=== PATIENT | male | born 1990 | race Caucasian/White ===

== ENCOUNTER 2018-02-20 22:55 | Emergency (ER) | payer SELFPAY ==
[2018-02-21] MEDS ORDERED: Tetan/Diph/Pertus SYR(Tdap)* 0.5 ML SYR(BOOSTRIX) use SYR IM ONE (00:16)
[2018-02-21] MEDS ORDERED: Bupivacaine 0.25% W/EPI* 50 ML VIAL INJ ONE (01:50)
[2018-02-21] MEDS ORDERED: Bupivacaine 0.5% W/EPI SDV* 30 ML VIAL ONE (01:53)
[2018-02-21] MEDS ORDERED: Lidocaine 2% EPI 1:200000 MPF*10-20 ML VIAL ONE (01:56)
[2018-02-21] MEDS ORDERED: HYDROcodone/ACETAMIN 5-325 MG* 1 TAB PO ONE (02:33)
[2018-02-21] MEDS ORDERED: Cephalexin CAP* 500 MG PO ONE (02:33)
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
[2018-02-21 02:44] VITALS: BP 129/82
== END 2018-02-21 02:42 | disposition home or self-care (01) ==
LOC: ED 22:55
DX: S51.811A Laceration without foreign body of right forearm, initial encounter (principal); W26.0XXA Contact with knife, initial encounter; Y92.9 Unspecified place or not applicable; Z72.0 Tobacco use
CPT/HCPCS: 12002; 90715; 96372; 96374; 99283; A9270-GY

== ENCOUNTER 2018-02-21 05:08 | Observation (INO) | payer MEDICAID, OTHER ==
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
[2018-02-21] MEDS ORDERED: NS 0.9% 1000 ML* 1,000 ML IV ONE ×2 (05:33→05:56)
[2018-02-21] MEDS ORDERED: Atropine SYRINGE* 0.1 MG/ML 10 ML SYRINGE (1 MG) ONE (05:53)
[2018-02-21 06:09] LABS: ABS Basophils 0.1 10^3/ul (0-0.2); ABS Eosinophils 0.2 10^3/ul (0-0.6); ABS Lymphocytes 2.4 10^3/ul (1.0-4.8); ABS Monocytes 0.8 10^3/ul (0-0.8); ABS Neutrophils 8.2 10^3/ul (1.5-7.7); ABS Nucleated RBC 0 10^3/ul; Hematocrit 41 % (42-52); Hemoglobin 13.7 g/dl (14.0-18.0); Lymphocyte % 20.3 %; Mean Corpuscular HGB Conc 33 g/dl (31-36); Mean Corpuscular Hemoglobin 29 pg (27-31); Mean Corpuscular Volume 88 fL (80-94); Mean Platelet Volume 8.1 fL (7.4-10.4); Nucleated Red Blood Cells % 0.1; Platelet Count 269 10^3/ul (150-450); Red Blood Count 4.71 10^6/ul (4.00-5.40); Red Cell Distribution Width 14 % (10.5-15); White Blood Count 11.7 10^3/ul (3.5-10.8)
[2018-02-21 06:27] LABS: EGFR Non-African American 84.2 (>60)
[2018-02-21 06:38] LABS: INR 0.9 (0.77-1.02)
--- NOTE | 2018-02-21 07:14 | ED ---
Progress - Progress Note Progress Note: This pt was signed out by Dr. Landis at shift change pending admission. [07:11] I discussed the case with Dr. Gutierrez, hospitalist, who accepted the pt for admission. Course/Dx - Course Course Of Treatment: This patient was signed out by Dr. Landis. He requested to get the patient admitted to the hospital services. He reports that the patient is a 27-year-old male who came to the emergency department with a chief complaint of syncopal episode. He reports that while he was in the emergency department the patient had a near syncopal episode and the patient was bradycardic and hypotensive. All the workup is negative. However he wants to admit the patient for observation since the patient is asymptomatic and with hypotension and bradycardia. I discussed my physical exam, findings and test results with Dr. Gutierrez from the hospitalist services and she agrees to admit patient to her services. Patient is hemodynamically stable, alert and oriented x 3. - Diagnoses Provider Diagnoses: Syncope - Provider Notifications Discussed Care Of Patient With: Carla Gutierrez - hospitalist Time Discussed With Above Provider: 07:11 Instructed by Provider To: Admit As Inpatient Discharge - Sign-Out/Discharge Documenting (check all that apply): Patient Departure - Admit to [facility], Receiving Sign-Out Receiving patient FROM: Annabelle Landis - Discharge Plan Condition: Stable Disposition: ADMITTED TO [facility] - Billing Disposition and Condition Condition: STABLE Disposition: Admitted to [facility] - Attestation Statements Document Initiated by Macho: Yes Documenting Scribe: Leonila Damon Provider For Whom Macho is Documenting (Include Credential): Jacques Arana MD Scribe Attestation: Leonila Louies, scribed for Jacques Arana MD on 02/21/18 at 1841. Scribe Documentation Reviewed: Yes Provider Attestation: The documentation as recorded by the Leonila balbuena accurately reflects the service I personally performed and the decisions made by me, Jacques Arana MD Status of Scribe Document: Viewed
[2018-02-21] MEDS ORDERED: Acetaminophen TAB* 325 MG PO PRN (07:38)
[2018-02-21] MEDS ORDERED: Ibuprofen TAB* 600 MG PO PRN (07:38)
[2018-02-21] MEDS: NS 0.9% 1000 ML* 1,000 ML IV SCH ×2 (09:18→15:39)
[2018-02-21] MEDS: Cephalexin CAP* 500 MG PO SCH ×2 (09:18→15:39)
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
--- NOTE | 2018-02-21 17:03 | ECHO ---
Patient: SARA CHAMBERLAIN [facility] Rec#: [id number] : 1990 Date: 02/21/2018 Age: 27y Height: 173 cm / 68.1 in Weight: 88 kg / 194.0 lbs Sex: M BSA: 2.02 Room#: 431 Admit Date#: 02/21/2018 Type: Inpatient Referring: Carla Holden MD Reading: Niraj Castellanos MD [employer]: Jia Bland RD,RDMS Transthoracic Echocardiogram Indication: Syncope BP: 104/48 HR: 83 Rhythm: NSR Findings History: Smoker Technical Comments: The study quality is fair. Left Ventricle: The left ventricular chamber size is normal. There is no left ventricular hypertrophy. Global left ventricular wall motion and contractility are within normal limits. There is normal left ventricular systolic function. The estimated ejection fraction is 55-60%. Normal left ventricular diastolic filling is observed. Left Atrium: The left atrial chamber size is normal. Right Ventricle: The right ventricular chamber size and systolic function are within normal limits. Right Atrium: The right atrial cavity size is normal. Aortic Valve: The aortic valve is trileaflet. Systolic excursion of the aortic valve is normal. There is no evidence of aortic regurgitation. There is no evidence of aortic stenosis. Mitral Valve: The mitral valve leaflets appear normal. There is no evidence of mitral regurgitation. There is no evidence of mitral stenosis. Tricuspid Valve: The tricuspid valve leaflets are normal. There is no evidence of tricuspid valve regurgitation. Unable to estimate the right ventricular systolic pressure. Pulmonic Valve: There is no evidence of pulmonic valve thickening. There is no evidence of pulmonic regurgitation. Pericardium: There is no significant pericardial effusion. Aorta: The aortic arch is not well visualized. The aortic root is normal in size. Pulmonary Artery: The main pulmonary artery is not well visualized. Venous: The inferior vena cava is not visualized. Summary: There was not any prior study for comparison. Conclusions Global left ventricular wall motion and contractility are within normal limits. There is normal left ventricular systolic function. The estimated ejection fraction is 55-60%. The right ventricular chamber size and systolic function are within normal limits. There is no evidence of aortic stenosis. There is no evidence of mitral regurgitation. There is no evidence of tricuspid valve regurgitation. Unable to estimate the right ventricular systolic pressure. There is no significant pericardial effusion. Measurements Name Value Normal Range RVIDd (AP) 2D 2 cm (0.9 - 2.6) RAd ISD 4CH 4.8 cm (3.4 - 4.9) RA (A4C)W 4 cm (2.9 - 4.6) IVSd (2D) 0.9 cm (0.6 - 1) LVPWd (2D) 0.9 cm (0.6 - 1) LVIDd (2D) 5 cm (3.6 - 5.4) LVIDs (2D) 3.2 cm - LV FS (2D) 37 % (25 - 45) Aortic Annulus 2.2 cm (1.4 - 2.6) Ao root diameter (2D) 3 cm (2.1 - 3.5) Ascending Ao 2.6 cm (2.1 - 3.4) LA dimension (AP) 2D 3.5 cm (2.3 - 3.8) LAd ISD 4CH 4.5 cm (2.9 - 5.3) LA ISD 4CH W 3.9 cm (2.5 - 4.5) Name Value Normal Range MV E-wave Vmax 0.8 m/sec - MV deceleration time 224 msec - MV A-wave Vmax 0.5 m/sec - MV E:A ratio 1.5 ratio - P. vein S-wave Vmax 0.4 m/sec - P. vein D-wave Vmax 0.3 m/sec - P. vein S:D Vmax ratio 1.1 ratio - P. vein A-wave duration 100 msec - LV septal e' Vmax 0.14 m/sec - LV lateral e' Vmax 0.15 m/sec - LV E:e' septal ratio 6 ratio - LV E:e' lateral ratio 5 ratio - Name Value Normal Range AV Vmax 1.3 m/sec - AV VTI 23 cm - AV peak gradient 7 mmHg - AV mean gradient 3 mmHg - LVOT Vmax 1.1 m/sec - LVOT VTI 19 cm - LVOT peak gradient 5 mmHg - LVOT mean gradient 2 mmHg - RU Vmax 1 m/sec - Name Value Normal Range RAP 8 mmHg - Name Value Normal Range PV Vmax 1 m/sec - PV peak gradient 4 mmHg -
[2018-02-22] MEDS: NS 0.9% 1000 ML* 1,000 ML IV SCH ×2 (01:34→07:51)
[2018-02-22] MEDS: Cephalexin CAP* 500 MG PO SCH ×2 (01:42→07:51)
[2018-02-22 07:45] VITALS: BP 127/79
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
== END 2018-02-22 11:20 | disposition home or self-care (01) ==
LOC: ED 05:08 → MEDTELE 07:31
PROVIDERS: ADMIT Internal Medicine; ATTEND Internal Medicine
DX: R55 Syncope and collapse (principal); S51.811A Laceration without foreign body of right forearm, initial encounter; R42 Dizziness and giddiness; Z91.030 Bee allergy status; F19.90 Other psychoactive substance use, unspecified, uncomplicated; R00.1 Bradycardia, unspecified; Z72.0 Tobacco use; W26.0XXA Contact with knife, initial encounter; Y92.9 Unspecified place or not applicable
CPT/HCPCS: 36415; 80053; 80307; 80320; 82550; 83605; 83735; 84443; 84484; 85025; 85610; 85730; 93005; 93306; 96360; 96361; 99284; A9270-GY; G0378; G0480; J0461